=== PATIENT | male | born 1985 | race Asian ===

== ENCOUNTER 2017-11-19 14:29 | Outpatient (CLI) | payer OTHER, SELFPAY ==
--- NOTE | 2017-11-19 12:00 | SATEXT_ITS ---
Assessment: Yousif presents for nutritional counseling. The referral is for fatty liver and GERD. He is 64 and 154 lbs. His BMI is 25.5 consistent with mild overweight. Yousif describes feeling very tired and run down for his young age. He wants to go to the gym and work out after work but has no energy or motivation. He reports that he was found to be deficient in Vitamin D and Vitamin B12. He is a vegetarian and he does not eat fish or egg. He has 1 cup of oatmeal for breakfast, he has rice, lentils, and vegetables at lunch, the same at dinner plus some bread. He has plain yogurt and drinks water. He also has almonds during the day. Nutritional Diagnosis: None at this time. Intervention: Suggested to Yousif that it is possible he is not getting enough variety in his diet and possibly not getting enough protein and absorbable iron. Provided a vegetarian meal plan using the foods that eats. Encouraged Yousif to keep up with his Vitamin D and Vitamin B12 supplements at this time. With regard to his weight and fatty liver, we discussed that physical activity will be beneficial. Even if he doesn't reduce his weight but increases his muscle mass, he will improve his overall health. Provided tips for his GERD. Monitoring and Evaluation: Yousif will self monitor his progress and evaluate his nutrition care plan for adequacy. He may follow up with me as needed. Thank you for the referral.
== END 2017-11-19 14:49 ==
PROVIDERS: PCP Internal Medicine; Visit Provider Dietitian, Registered
DX: K76.0 Fatty (change of) liver, not elsewhere classified (principal); K21.9 Gastro-esophageal reflux disease without esophagitis; Z71.3 Dietary counseling and surveillance
CPT/HCPCS: 97802

== ENCOUNTER 2018-05-02 12:23 | Emergency (ER) | payer OTHER, SELFPAY ==
[2018-05-02] VITALS (11 sets, daily range): BP systolic 112–126; BP diastolic 74–83; PULSE 60–77; RESP 11–20; TEMP 36.9; O2SAT 96–100
[2018-05-02] MEDS: Normal Saline Flush 10 ML SYR IVP (12:30)
--- NOTE | 2018-05-02 12:41 | DI.RAD_ITS ---
SYMPTOMS/DIAGNOSIS: LEFT-SIDED CHEST PAIN CHEST X-RAY, AP AND LATERAL: Comparison is 10/30/16. The heart is normal in size. The lungs are clear. The mediastinal structures and pleura appear intact. IMPRESSION: Normal chest.
[2018-05-02] MEDS: Aspirin 81 MG CHEW 324 MG CH (12:53)
[2018-05-02 12:54] LABS: Abs Immature Grans 0.01 k/cumm (0.0-0.09); Absolute Basophil Count 0.04 k/cumm (0.0-0.2); Absolute Eosinophil Count 0.35 k/cumm (0.0-0.7); Absolute Lymphocyte Count 2.71 k/cumm (1.2-3.4); Absolute Monocyte Count 0.75 k/cumm (0.11-0.7); Absolute Neutrophil Count 3.58 k/cumm (1.2-6.7); Basophils % 0.5; Eosinophils % 4.7; HCT 43.9 % (40.0-50.0); HGB 15.4 g/dL (13.5-17.5); Immature Grans % 0.1; Lymphocytes % 36.4; Mean Corp. HGB Concentration 35.1 g/dL (32.0-36.0); Mean Corpuscular Hemoglobin 29.4 pg (27.0-33.0); Mean Corpuscular Volume 83.9 fL (80-95); Mean Platelet Volume 10.1 fL (8.0-11.0); Monocytes % 10.1; Neutrophils % 48.2; Platelet Count 183 x1000/uL (130-400); RBC 5.23 m/cumm (4.50-6.00); RBC Distribution Width 12.3 % (11.8-14.1); White Blood Cell Count 7.44 k/cumm (4.4-10.8)
[2018-05-02 13:12] LABS: ALT 74 U/L (12-78); AST 38 U/L (15-37); Albumin 4.5 g/dL (3.4-5.0); Alkaline Phosphatase 82 U/L (46-116); Anion Gap 7.7 mmol/L (3-11); BUN 10 mg/dL (7-18); Bilirubin, Total 0.6 mg/dL (0.2-1.0); CO2 30.3 mmol/L (21.0-32.0); CREATININE 0.78 mg/dL (0.70-1.30); Chloride 100 mmol/L (98-107); Glucose 99 mg/dL (70-100); Potassium 3.6 mmol/L (3.5-5.1); Sodium 138 mmol/L (136-145); Total Protein 8.4 g/dL (6.4-8.2)
[2018-05-02 13:18] LABS: Troponin I < 0.02 ng/mL (0.00-0.06)
--- NOTE | 2018-05-02 13:49 | ED.GENADUL_ITS ---
Discharge Plan Disposition Patient Disposition: AGAINST MEDICAL ADVICE Condition: Stable Discharge Details Chief Complaint: Chest Pain Clinical Impression: Acute thoracic myofascial strain, Atypical chest pain Primary Care Provider: Rosalba Andrews ED Provider: Todd Rosas Home Meds and New Rx's Prescriptions: New cyclobenzaprine 10 mg tablet 10 mg PO TID PRN (Reason: muscle spasm) Qty: 7 RF: 0 Discontinued Vibramycin 50 MG/5 ML syrup 100 mg PO DAILY RF: 0 No Action ergocalciferol (vitamin D2) [Vitamin D2] 50,000 unit Capsule 50,000 unit PO DIRECTED RF: 0 Discharge Instructions Instructions: Chest Pain (ED), Muscle Strain (ED) Additional Instructions: Feel free to take [id number] pain medication along with prescribed muscle relaxer to see if this helps your discomfort. Feel free to return the emergency department for reassessment as needed or for any further concerns otherwise follow-up with your primary care provider for reassessment if not improving. It is recommended that you perform good ergonomics while at your computer desk and limit heavy lifting or strenuous motions over the next week Referrals: Rosalba Andrews MD [Primary Care Provider] - (As needed for reassessment) Discharge Data Discharge Date/Time-TO BE ENTERED AT DEPARTURE: 05/02/18 14:03 Medical Decision Making Patient presenting to the emergency department with chief complaint of back pain radiating radiating around through the chest. Patient states that this started approximately 15 minutes prior to arrival and is sharp in nature. Patient states that he is worried about a heart attack . Patient denies doing any strenuous activity when this began. Physical exam shows normal cardiac and respiratory examination with upper thoracic tenderness of paraspinal tissue otherwise no vertebral discomfort. Plan to check labs, chest x-ray, and staff midwife/apprenticeship director initiated protocol for EKG. EKG reviewed with attending physician. Initial review of labs and chest x-ray shows no acute or worrisome findings and are overall nondiagnostic with negative initial troponin. Patient reassessed and states that pain is improving, he was given aspirin at arrival. Patient was clearly informed that given onset of symptoms that initial troponin does not necessarily rule out cardiac nature to chest pain. He states that now he realizes he had done a strenuous workout last night and that pain may have been more positional while sitting at his desk causing a muscular spasm. Due to patient stating some chest discomfort along with his symptoms I would prefer to do a 3-hour troponin given inverted T waves on EKG but no acute signs of stemi. Patient states that he does not want to stay for the 3-hour cardiac test and would prefer to go home and return for any worsening symptoms. Thorough return precautions were discussed. Given that patient then revealed workout induced back pain/thoracic pain I feel that this is highly likely the cause of his symptoms but ACS cannot fully be ruled out on one troponin. Patient again was informed of this but stated he would prefer to be discharged. Patient was willing to sign out AMA but I did prescribe him Flexeril to see if this helps with his muscular spasms and encouraged him to use [id number] pain therapies as needed. After discussion of diagnosis and plan of care patient has no further needs, questions, or concerns and states clear understanding to return to the emergency department for any worsening symptoms or further concerns. ECG Data Interpretation: Normal sinus rhythm with rate of 64, some inverted T waves in III, no STEMI, EKG compared to previous which shows no significant. HPI General Mode of arrival: ambulatory . Date/Time Provider Initiated Documentation: 05/02/18 12:38 . Limitations to Documentation: no limitations . Information obtained by: patient and RN notes reviewed . History of Present Illness 32 year old M presents to the emergency department with the chief complaint of Shoulder blade pain radiating to chest, described as moderate, with intensity rated at 8. Quality is described as sharp, Patient started experiencing this minute(s) (15) and it has been constant. No relieving factors improve symptom(s), Movement worsens symptoms . Patient notes no other symptoms.. Patient did receive the following treatments prior to arrival, none Related Data Home Medications Medication Instructions Recorded Confirmed cyclobenzaprine 10 mg PO TID PRN #7 tab 05/02/18 ergocalciferol (vitamin D2) 50,000 unit PO DIRECTED 05/02/18 05/02/18 [Vitamin D2] Previous Rx's Medication Instructions Recorded cyclobenzaprine 10 mg PO TID PRN #7 tab 05/02/18 Allergies Allergy/AdvReac Type Severity Reaction Status Date / Time No Known Drug Allergies Allergy Verified 05/02/18 12:44 some medications Allergy Severe couldn't Uncoded 05/02/18 12:44 breath General Stated Complaint: Chest Pain LARRY: 2 Review of Systems Constitutional Denies chills, Denies fever(s) and Denies malaise ENT Denies neck pain Cardiovascular Reports as per HPI, Reports chest pain, Reports chest pain with activity, Denies syncope, Denies irregular heart rhythm, Denies palpitations and Denies dyspnea Respiratory Denies cough, Denies hemoptysis and Denies dyspnea Gastrointestinal Denies abdominal pain, Denies nausea and Denies vomiting Musculoskeletal Reports back pain, Denies neck pain and Denies stiffness Neurologic Denies syncope Psychiatric Denies anxiety Endocrine Denies cold intolerance, Denies heat intolerance and Denies palpitations PFSH Surgical History EGD (08/03/14) Family History Mother Diabetes Anxiety Father Diabetes Sister Diabetes Essential hypertension Anxiety Social History Smoking/Tobacco Use Status: Never Alcohol Intake: never Substance use type: does not use Housing: apartment Do you feel safe in your relationship?: Yes Exam Const General: cooperative, healthy appearing, comfortable, no acute distress, not diaphoretic and not ill appearing Nutritional Appearance: average body habitus Orientation: alert, awake and oriented x3 Limitations: mental status not altered Neck Neck: normal visual inspection, full ROM, trachea midline, supple and no anterior neck swelling Thyroid: thyroid normal Carotids: normal carotid upstroke and no bruits Chest Chest: normal inspection of the chest Resp Effort & Inspection: normal respiratory effort and able to speak in complete sentences Auscultation: clear to auscultation bilaterally Cardio Jugular venous pressure: no JVD Palpation: normal PMI Rate: regular rate Rhythm: regular rhythm Heart Sounds: S1 normal, S2 normal, no click, no gallops, no murmurs and no rubs Bruits: no abdominal aortic bruits and no carotid bruits Pulses: radial pulses present bilaterally 2+ GI Inspection: normal to inspection Palpation: soft, no aortic enlargement, no pulsatile masses and nontender Auscultation: normal bowel sounds Back/Spine/Pelvis Thoracic/Lumbar Spine: thoraco-lumbar ROM normal and paraspinal tenderness (To mid section in between scapula and up to lower cervical) Skin General skin exam: no rashes or lesions noted Neuro General: alert, awake, oriented x3, tone normal and moves all extremities Course Vital Signs Temperature 36.9 C 05/02/18 12:27 Pulse 64 05/02/18 12:27 Respiratory Rate 20 05/02/18 12:27 Blood Pressure 126/79 05/02/18 12:27 Pulse Oximetry 100 05/02/18 12:27 Temperature 36.9 C 05/02/18 12:27 Temperature Source Skin 05/02/18 12:27 Pulse 61 05/02/18 12:46 Pulse 62 05/02/18 12:47 Respiratory Rate 14 05/02/18 12:49 Respiratory Effort 05/02/18 12:49 Respiratory Depth Shallow 05/02/18 12:49 Blood Pressure 112/74 05/02/18 12:46 Blood Pressure Mean 82 05/02/18 12:46 Blood Pressure Position Supine 05/02/18 12:27 Pulse Oximetry 98 05/02/18 12:47 Oxygen Delivery Method Room Air 05/02/18 12:27 Oxygen Flow Rate 0 05/02/18 12:27 Pain Level 8 05/02/18 12:27 Lab/Test Results Lab/Test Results: Laboratory Tests Range/Units 05/02/18 05/02/18 12:30 12:30 WBC (4.4-10.8) k/cumm 7.44 RBC (4.50-6.00) m/cumm 5.23 Hgb (13.5-17.5) g/dL 15.4 Hct (40.0-50.0) % 43.9 MCV (80-95) fL 83.9 MCH (27.0-33.0) pg 29.4 MCHC (32.0-36.0) g/dL 35.1 RDW (11.8-14.1) % 12.3 Plt Count (130-400) x1000/uL 183 MPV (8.0-11.0) fL 10.1 Immature Gran % 0.1 Neutrophils % 48.2 Lymphocytes % 36.4 Monocytes % 10.1 Eosinophils % 4.7 Basophils % 0.5 Absolute Neutrophils (1.2-6.7) k/cumm 3.58 Absolute Lymphocytes (1.2-3.4) k/cumm 2.71 Absolute Monocytes (0.11-0.7) k/cumm 0.75 H Absolute Eosinophils (0.0-0.7) k/cumm 0.35 Absolute Basophils (0.0-0.2) k/cumm 0.04 Sodium (136-145) mmol/L 138 Potassium (3.5-5.1) mmol/L 3.6 Chloride (98-107) mmol/L 100 Carbon Dioxide (21.0-32.0) mmol/L 30.3 Anion Gap (3-11) mmol/L 7.7 BUN (7-18) mg/dL 10 Creatinine (0.70-1.30) mg/dL 0.78 Estimated GFR/1.73 m2 (mL/min/1.73m2) >= 60.00 Glucose (70-100) mg/dL 99 Calcium (8.5-10.1) mg/dL 9.0 Magnesium (1.8-2.4) mg/dL 2.0 Total Bilirubin (0.2-1.0) mg/dL 0.6 AST (15-37) U/L 38 H ALT (12-78) U/L 74 Alkaline Phosphatase (46-116) U/L 82 Troponin I (0.00-0.06) ng/mL < 0.02 Total Protein (6.4-8.2) g/dL 8.4 H Albumin (3.4-5.0) g/dL 4.5
== END 2018-05-02 14:03 | disposition left against medical advice (07) ==
PROVIDERS: Emergency Provider Nurse Practitioner Family; PCP Internal Medicine
DX: S29.011A Strain of muscle and tendon of front wall of thorax, initial encounter (principal); R07.89 Other chest pain; X58.XXXA Exposure to other specified factors, initial encounter
CPT/HCPCS: 36415; 80053; 93005; 99285; 71046; 83735; 84484; 85025; 93010

== ENCOUNTER 2018-05-13 13:23 | Outpatient (CLI) | payer OTHER, SELFPAY ==
[2018-05-13 14:52] LABS: Vitamin D 25 Total 46.7 ng/ml (30-100)
== END 2018-05-13 13:43 ==
PROVIDERS: PCP Internal Medicine; Visit Provider Internal Medicine
DX: E55.9 Vitamin D deficiency, unspecified (principal)
CPT/HCPCS: 36415; 82306

== ENCOUNTER 2019-01-21 19:24 | Outpatient (REF) | payer OTHER, SELFPAY ==
[2019-01-21 18:45] LABS: ALT 132 U/L (16-63); AST 43 U/L (15-37); Albumin 4.5 g/dL (3.4-5.0); Alkaline Phosphatase 79 U/L (46-116); Bilirubin, Direct 0.11 mg/dL (0.00-0.20); Bilirubin, Total 0.4 mg/dL (0.2-1.0); Total Protein 7.7 g/dL (6.4-8.2)
[2019-01-25 00:02] LABS: 25-Hydroxy D Total 18 ng/mL; 25-Hydroxy D2 <4.0 ng/mL; 25-Hydroxy D3 18 ng/mL
== END 2019-01-21 19:44 ==
LOC: LBN 19:24
PROVIDERS: PCP Internal Medicine; Visit Provider Family Medicine
DX: E55.9 Vitamin D deficiency, unspecified (principal); K76.0 Fatty (change of) liver, not elsewhere classified
CPT/HCPCS: 80076; 82306

== ENCOUNTER 2019-02-07 12:30 | Outpatient (CLI) | payer OTHER, SELFPAY ==
[2019-02-11 14:59] LABS: Helicobacter pylori Ag, Feces Positive (Negative)
== END 2019-02-07 12:50 ==
PROVIDERS: PCP Internal Medicine; Visit Provider Family Medicine
DX: K52.9 Noninfective gastroenteritis and colitis, unspecified (principal)
CPT/HCPCS: 87338

== ENCOUNTER 2019-02-11 02:56 | Outpatient (CLI) | payer OTHER, SELFPAY ==
--- NOTE | 2019-02-11 08:29 | DI.US_ITS ---
EXAM: US ABDOMEN CLINICAL HISTORY: ELEVATED LFTS R79.89 TECHNIQUE: Ultrasound abdomen performed using standard protocol. COMPARISON: No exams were available for comparison FINDINGS: LIVER: Increased echogenicity consistent with hepatic steatosis. No hepatic mass is seen. There is hepatopetal flow through the portal vein. GALLBLADDER: No evidence of cholelithiasis. No evidence of wall thickening. No pericholecystic fluid identified. KIDNEYS: Kidneys are symmetric in size. No evidence of renal calculi. No evidence of hydronephrosis. No renal mass or cyst identified. BILIARY SYSTEM: Common bile duct measures 4 mm. No intrahepatic biliary ductal dilation. HOFFMANN'S SIGN: Negative. PANCREAS: Normal where visualized. SPLEEN: Not enlarged. ABDOMINAL AORTA AND IVC: Visualized portions normal caliber. ASCITES: None seen. IMPRESSION: Increased echogenicity of the liver consistent with hepatic steatosis.
== END 2019-02-11 03:16 ==
PROVIDERS: PCP Internal Medicine; Visit Provider Internal Medicine
DX: R79.89 Other specified abnormal findings of blood chemistry (principal); K76.0 Fatty (change of) liver, not elsewhere classified
CPT/HCPCS: 76700

== ENCOUNTER 2019-02-13 12:35 | Outpatient (REF) | payer OTHER, SELFPAY ==
[2019-02-13 18:39] LABS: ALT 137 U/L (16-63); AST 48 U/L (15-37); Albumin 4.6 g/dL (3.4-5.0); Alkaline Phosphatase 92 U/L (46-116); Anion Gap 9.4 mmol/L (3-11); BUN 9 mg/dL (7-18); Bilirubin, Total 0.4 mg/dL (0.2-1.0); CO2 29.6 mmol/L (21.0-32.0); CREATININE 0.59 mg/dL (0.70-1.30); Calcium 8.7 mg/dL (8.5-10.1); Chloride 103 mmol/L (98-107); Glucose 83 mg/dL (74-106); Sodium 142 mmol/L (136-145); Total Protein 7.9 g/dL (6.4-8.2)
== END 2019-02-13 12:55 ==
LOC: LBO 12:35
PROVIDERS: PCP Internal Medicine; Visit Provider Nurse Practitioner Adult Health
DX: R74.0 Nonspecific elevation of levels of transaminase and lactic acid dehydrogenase [LDH] (principal); A04.8 Other specified bacterial intestinal infections
CPT/HCPCS: 80053

== ENCOUNTER 2019-07-09 14:12 | Outpatient (CLI) | payer OTHER, SELFPAY ==
[2019-07-09 18:06] LABS: ALT 54 U/L (16-63); AST 25 U/L (15-37)
[2019-07-15 14:11] LABS: Helicobacter pylori Ag, Feces Negative (Negative)
== END 2019-07-09 14:32 ==
PROVIDERS: PCP Internal Medicine; Visit Provider Internal Medicine
DX: A04.8 Other specified bacterial intestinal infections (principal); K76.0 Fatty (change of) liver, not elsewhere classified
CPT/HCPCS: 36415; 87338; 84450; 84460

== ENCOUNTER 2020-02-05 01:52 | Outpatient (CLI) | payer OTHER, SELFPAY ==
[2020-02-05 18:27] LABS: Vitamin D 25 Total 36.1 ng/ml (30-100)
[2020-02-06 12:42] LABS: ALT 54 U/L (16-63); AST 24 U/L (15-37); Albumin 4.4 g/dL (3.4-5.0); Alkaline Phosphatase 99 U/L (46-116); Bilirubin, Direct 0.08 mg/dL (0.00-0.20); Bilirubin, Total 0.4 mg/dL (0.2-1.0); Total Protein 7.8 g/dL (6.4-8.2)
== END 2020-02-05 02:12 ==
PROVIDERS: Family Medicine; PCP Internal Medicine; Visit Provider Internal Medicine
DX: E55.9 Vitamin D deficiency, unspecified (principal); K76.0 Fatty (change of) liver, not elsewhere classified
CPT/HCPCS: 36415; 80076; 82306

== ENCOUNTER 2020-12-30 12:41 | Outpatient (CLI) | payer OTHER, SELFPAY ==
[2020-12-30 13:13] LABS: Albumin 4.9 g/dL (3.4-5.0); Alkaline Phosphatase 96 U/L (46-116); BUN 13 mg/dL (7-18); Bilirubin, Total 0.6 mg/dL (0.2-1.0); CREATININE 0.8 mg/dL (0.70-1.30); Calcium 9.2 mg/dL (8.5-10.1); Glucose 94 mg/dL (74-106); Sodium 142 mmol/L (136-145); Total Protein 8.6 g/dL (6.4-8.2)
[2020-12-30 13:14] LABS: ALT 115 U/L (16-63); AST 39 U/L (15-37); Anion Gap 9.9 mmol/L (3-11); CO2 30.1 mmol/L (21.0-32.0); Chloride 102 mmol/L (98-107); Potassium 4.3 mmol/L (3.5-5.1)
[2020-12-30 13:15] LABS: Calculated LDL 160 mg/dL (<100); Cholesterol 220 mg/dL (<200); HDL Cholesterol 39 mg/dL (40-60); Triglyceride 105 mg/dL (<150)
[2020-12-30 13:25] LABS: Vitamin D 25 Total 35.7 ng/mL (30-100)
== END 2020-12-30 12:42 | disposition home or self-care (01) ==
LOC: LOS 12:43
PROVIDERS: Nurse Practitioner Adult Health; PCP Internal Medicine; Visit Provider Internal Medicine
DX: Z13.220 Encounter for screening for lipoid disorders; E78.00 Pure hypercholesterolemia, unspecified; E55.9 Vitamin D deficiency, unspecified; K76.0 Fatty (change of) liver, not elsewhere classified
CPT/HCPCS: 36415; 80053; 80061; 82306

== ENCOUNTER 2021-01-10 19:22 | Emergency (ER) | payer OTHER, SELFPAY ==
[2021-01-10 19:50] VITALS: BP 156/76; PULSE 69; RESP 18; TEMP 36.6; O2SAT 100
[2021-01-10 20:08] LABS: Bilirubin Negative (Negative); Blood Moderate (Negative); Clarity Sl Cloudy (Clear); Glucose Negative (Negative); Ketones Negative (Negative); Leukocyte Esterase Negative (Negative); Nitrite Negative (Negative); Urobilinogen 0.2 EU/dL (Up TO 0.2)
--- NOTE | 2021-01-10 20:15 | DI.CT_ITS ---
Exam(s) CT RENAL COLIC WO EXAM: CT RENAL COLIC WO INDICATION: left flank pain, hematuria. COMPARISON: No exams were available for comparison TECHNIQUE: CT examination was performed without contrast administration. FINDINGS: Images obtained through the lung bases are unremarkable. There is decreased hepatic attenuation con sistent with hepatic steatosis. Spleen is unremarkable in appearance. Visualized portions of the pancreas are unremarkable. Gallbladder and bile ducts are CT normal. Abdominal aorta is of normal diameter. No significant abdominal wall hernia. No significant abdominal or pelvic adenopathy. Adrenals appear normal bilaterally. The left kidney is unremarkable appearance with no hydronephrosis, nephrolithiasis, renal mass. No l eft ureteral stone. On the right there is moderate hydronephrosis and a small perinephric fluid collection. There is a n onobstructing right renal calculus. There is right hydroureter to the level of the ureterovesical ju nction where there is a 3 millimeter in diameter intramural obstructing stone. Urinary bladder other boateng unremarkable. IMPRESSION: There is an obstructing 3 millimeter stone at the ureterovesical junction on the right in the intramu ral portion of the distal ureter. Nonobstructing right nephrolithiasis noted with a single 4 millimeter stone. RADIATION DOSE DELIVERED: 764.99mGy.cm DLP 764.99mGy.cm Total DLP CTDIvol RADIATION OPTIMIZATION: All CT scans at this facility use at least one of these dose optimization te chniques: automated exposure control; mA and/or kV adjustment per patient size (includes targeted exa ms where dose is matched to clinical indication); or iterative reconstruction.
[2021-01-10 20:16] LABS: Bacteria Negative HPF (Negative); C & S Indicated? No; Casts Negative LPF (Negative); Crystals Negative HPF (Negative); Epithelial Cells Few HPF (Negative); Mucus Negative (Negative); RBC 20-50 HPF (0-2); WBC 0-2 HPF (0-5)
[2021-01-10] MEDS: Ketorolac 15 MG/ML VIAL IVP (20:34)
[2021-01-10 20:48] LABS: Abs Immature Grans 0.04 10^3/uL (0.0-0.06); Absolute Basophil Count 0.04 10^3/uL (0.0-0.2); Absolute Lymphocyte Count 2.16 10^3/uL (1.2-3.4); Absolute Monocyte Count 1.04 10^3/uL (0.1-0.8); Absolute Neutrophil Count 7.23 10^3/uL (1.2-6.7); Basophils % 0.4; Eosinophils % 0.9; HCT 40.8 % (40.0-50.0); HGB 13.9 g/dL (13.5-17.5); Immature Grans % 0.4; Lymphocytes % 20.4; MCH 28.9 pg (27.0-33.0); MCHC 34.1 % (32.0-36.0); MCV 84.8 fL (80-95); MPV 10.1 fL (8.0-11.0); Monocytes % 9.8; Neutrophils % 68.1; Nucleated RBC 0 %; Platelet Count 206 10^3/uL (130-400); RBC 4.81 10^6/uL (4.36-5.78); RDW 11.7 % (11.8-14.1); RDW-SD 35.7 fL; WBC 10.61 10^3/uL (4.4-10.8)
[2021-01-10 20:58] LABS: ALT 79 U/L (16-63); AST 30 U/L (15-37); Albumin 4.2 g/dL (3.4-5.0); Alkaline Phosphatase 120 U/L (46-116); Anion Gap 8.3 mmol/L (3-11); BUN 7 mg/dL (7-18); Bilirubin, Total 0.3 mg/dL (0.2-1.0); CO2 27.7 mmol/L (21.0-32.0); CREATININE 0.9 mg/dL (0.70-1.30); Calcium 8.5 mg/dL (8.5-10.1); Chloride 97 mmol/L (98-107); Glucose 112 mg/dL (74-106); Potassium 3.7 mmol/L (3.5-5.1); Sodium 133 mmol/L (136-145); Total Protein 7.9 g/dL (6.4-8.2)
[2021-01-10 21:24] VITALS: BP 138/67; PULSE 76; RESP 18; O2SAT 99
--- NOTE | 2021-01-10 21:44 | ED.GENADUL_ITS ---
Discharge Plan Disposition Patient Disposition: HOME Condition: Stable Discharge Details Clinical Impression: Ureterolithiasis, Cystitis Primary Care Provider: Rosalba Andrews ED Provider: Imer Woods Home Meds and New Rx's Prescriptions: New sulfamethoxazole-trimethoprim [Bactrim DS] 800-160 mg tablet 1 tab PO BID Qty: 14 RF: 0 Continued ketoconazole 2 % shampoo 1 applic TP DAILY PRN RF: 0 cholecalciferol (vitamin D3) 50 mcg (2,000 unit) tablet 50 mcg PO DAILY RF: 0 triamcinolone acetonide 0.1 % cream 1 applic TP BID PRNRF: 0 Discharge Instructions Instructions: Kidney Stones (ED), How to Strain Your Urine (ED) Additional Instructions: Please take ibuprofen over the counter. Take 600mg by mouth every 6 hours as needed for pain. Take Flomax as prescribed until you passed stone. Take antibiotic as prescribed. Complete the full course. Please strain your urine to collect stone. Save stone for analysis and bring with you to follow-up appointment with urology. Please follow-up with urology. Call to schedule an appointment. Please contact your primary care physician to arrange follow-up. Return to the ER for any worsening or new concerning symptoms. Referrals: Jake Rushing MD [ [facility] STAFF PHYSICIAN] - Rosalba Andrews MD [Primary Care Provider] - Discharge Data Discharge Date/Time-TO BE ENTERED AT DEPARTURE: 01/10/21 22:37 Medical Decision Making 35-year-old male with history of renal stones in the remote past, here with right flank pain worse over the past 2 days as well as dysuria. Urinalysis reviewed and reveals greater than 50 RBCs and [address] of the abdomen pelvis was interpreted by radiology: IMPRESSION: 1. Moderate right obstructive uropathy caused by a 5 mm x 3 mm stone impacted in the right UVJ. 2. Urinary bladder wall findings may be related to cystitis in the appropriate clinical setting. Pain significantly improved with toradol. Will treat with flomax. Given dysuria and findings of cystitis, I will treat for urinary tract infection. I will have patient follow-up with urology. HPI General Mode of arrival: ambulatory . Date/Time Provider Initiated Documentation: 01/10/21 19:55 . Limitations to Documentation: no limitations . Information obtained by: patient . HPI Narrative: 35yo m with history of remote renal stones (9yo), here with chief complaint of right flank pain. Pain started two days ago and worse today. Associated tingling discomfort in penis. Patient notes he was traveling last week and was not much water as usual. He denies associated hematuria but has had dark urine. No rash or penile discharge. No associated fever or nausea vomiting. Related Data Home Medications Medication Instructions Recorded Confirmed ketoconazole 2 % shampoo 1 applic TP DAILY PRN ml 01/29/19 01/18/21 cholecalciferol (vitamin D3) 50 50 mcg PO DAILY tab 07/11/19 01/18/21 mcg (2,000 unit) tablet triamcinolone acetonide 0.1 % 1 applic TP BID PRN 10/13/19 01/18/21 topical cream sulfamethoxazole-trimethoprim 1 tab PO BID #14 tab 01/10/21 01/18/21 [Bactrim DS] Previous Rx's Medication Instructions Recorded sulfamethoxazole-trimethoprim 1 tab PO BID #14 tab 01/10/21 [Bactrim DS] Allergies Allergy/AdvReac Type Severity Reaction Status Date / Time No Known Drug Allergies Allergy Verified 01/17/21 14:33 some medications Allergy Severe couldn't Uncoded 01/17/21 14:33 breath General Stated Complaint: Urinary LARRY: 4 Review of Systems All systems reviewed & are unremarkable except as noted in HPI and below Constitutional Constitutional: Denies fever(s) Genitourinary Genitourinary: Reports as per HPI, Denies hematuria, Denies erectile dys function, Denies scrotal swelling, Denies testicular mass and Denies testicular pain PFSH Active Problem List Hypercholesterolemia (Chronic ~01/02/21) Stress due to illness of family member (Acute) Vitamin D deficiency (Chronic) Somatic complaints, multiple (Chronic) Worried well (Chronic) Anxiety (Chronic 04/04/16) Lichen simplex chronicus (Chronic) GERD (gastroesophageal reflux disease) (Chronic 03/16/16) Functional bowel disorder (Chronic 03/20/17) Fatty liver (Chronic 02/19/11) Medical History Helicobacter pylori antibody positive (07/25/14) Keratosis pilaris (02/05/17) [facility] [place] 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 H.pylori positive- Dr. Perry Family History Mother Diabetes Anxiety Father Diabetes Sister Diabetes Essential hypertension Anxiety Social History Smoking/Tobacco Use Status: Never Smoking risk assessment performed?: Yes Alcohol Intake: never Drug use: Never Substance use type: does not use Housing: apartment Number of Children: 0 Communication Needs: None current occupation: [employer] What is your relationship status?: don't know How often do you talk on the phone with friends or family?: three or more times per week Panel score (0-1 are the most socially isolated patients): 1 What type of physical activity do you participate in: regular exercise Frequency: 3-4 times per week Seatbelt use: always Working smoke detector in home: Yes Carbon monox detector in home: Yes Do you feel safe at home: Yes Exam Const General: cooperative and no acute distress HENMT Mouth: moist mucous membranes Eyes Conjunctivae: normal conjunctivae Sclera: normal sclerae Resp Auscultation: clear to auscultation bilaterally, no rales, no rhonchi and no wheezes Cardio Rate: regular rate and not tachycardic Rhythm: regular rhythm GI Palpation: soft, not firm, no guarding, no masses, not rigid and nontender General: CVA tenderness on the right Male General Exam: Yes normal external exam Penis: normal penis Meatus: meatus normal Scrotum: scrotum normal, no inguinal hernias and no scrotal swelling Testes: normal, epididymides normal, no testicular swelling and no testicular tenderness Skin General skin exam: no rashes or lesions noted Neuro General: patient alert, patient awake and tone normal Extrem General: no edema Psych Appearance: grossly normal Mental Status: mental status grossly normal Speech and Movement: speech and movement normal Course Vital Signs Vital signs: Vital Signs Temperature 36.6 C 01/10/21 19:50 Pulse 69 01/10/21 19:50 Respiratory Rate 18 01/10/21 19:50 Blood Pressure 156/76 H 01/10/21 19:50 Pulse Oximetry 100 01/10/21 19:50 Temperature 36.6 C 01/10/21 19:50 Temperature Source Tympanic 01/10/21 19:50 Pulse 76 01/10/21 21:24 Respiratory Rate 18 01/10/21 21:24 Respiratory Effort 01/10/21 19:58 Blood Pressure 138/67 01/10/21 21:24 Blood Pressure Position Supine 01/10/21 19:50 Pulse Oximetry 99 01/10/21 21:24 Oxygen Delivery Method Room Air 01/10/21 21:24 Oxygen Flow Rate 0 01/10/21 21:24 Pain Level 8 01/10/21 19:50 Lab/Test Results Lab/Test Results: Laboratory Tests Range/Units 01/10/21 01/10/21 01/10/21 20:00 20:30 20:30 WBC (4.4-10.8) 10^3/uL 10.61 RBC (4.36-5.78) 10^6/uL 4.81 Hgb (13.5-17.5) g/dL 13.9 Hct (40.0-50.0) % 40.8 MCV (80-95) fL 84.8 MCH (27.0-33.0) pg 28.9 MCHC (32.0-36.0) % 34.1 RDW (11.8-14.1) % 11.7 L Plt Count (130-400) 10^3/uL 206 MPV (8.0-11.0) fL 10.1 Immature Gran % 0.4 Neutrophils % 68.1 Lymphocytes % 20.4 Monocytes % 9.8 Eosinophils % 0.9 Basophils % 0.4 Nucleated RBC % % 0 Absolute Neutrophils (1.2-6.7) 10^3/uL 7.23 H Absolute Lymphocytes (1.2-3.4) 10^3/uL 2.16 Absolute Monocytes (0.1-0.8) 10^3/uL 1.04 H Absolute Eosinophils (0.0-0.7) 10^3/uL 0.10 Absolute Basophils (0.0-0.2) 10^3/uL 0.04 Sodium (136-145) mmol/L 133 L Potassium (3.5-5.1) mmol/L 3.7 Chloride (98-107) mmol/L 97 L Carbon Dioxide (21.0-32.0) mmol/L 27.7 Anion Gap (3-11) mmol/L 8.3 BUN (7-18) mg/dL 7 Creatinine (0.70-1.30) mg/dL 0.9 Estimated GFR/1.73 m2 (mL/min/1.73m2) >= 60.00 Glucose (74-106) mg/dL 112 H Calcium (8.5-10.1) mg/dL 8.5 Total Bilirubin (0.2-1.0) mg/dL 0.3 AST (15-37) U/L 30 ALT (16-63) U/L 79 H Alkaline Phosphatase (46-116) U/L 120 H Total Protein (6.4-8.2) g/dL 7.9 Albumin (3.4-5.0) g/dL 4.2 Urine Color (Yellow) Yellow Urine Clarity (Clear) Sl Cloudy Urine pH (5-8) 6.0 Ur Specific [place] (1.005-1.025) 1.020 Urine Protein (Negative) mg/dL Negative Urine Ketones (Negative) mg/dL Negative Urine Blood (Negative) Moderate H Urine Nitrite (Negative) Negative Urine Bilirubin (Negative) Negative Urine Urobilinogen (Up TO 0.2) EU/dL 0.2 Ur Leukocyte Esterase (Negative) Negative Urine RBC (0-2) HPF 20-50 H Urine WBC (0-5) HPF 0-2 Ur Epithelial Cells (Negative) HPF Few Urine Crystals (Negative) HPF Negative Urine Bacteria (Negative) HPF Negative Urine Casts (Negative) LPF Negative Urine Mucus (Negative) Negative Ur Culture Indicated? No Urine Glucose (Negative) mg/dL Negative
--- NOTE | 2021-01-10 21:55 | DI.VRAD_ITS ---
PROCEDURE INFORMATION: Exam: CT Abdomen And Pelvis Without Contrast Exam date and time: 01/10/2021 8:22 PM Age: 35 years old Clinical indication: Patient HX: Painful urination, L flank pain TECHNIQUE: Imaging protocol: Computed tomography of the abdomen and pelvis without contrast. COMPARISON: US ABDOMEN 02/11/2019 8:29 AM FINDINGS: Lungs: Subcentimeter nodular opacifications in the left lung base are pleural based and related to nodular atelectasis. These are of no concern. Lung bases are otherwise clear. Diaphragm: A small hiatal hernia is present. Liver: There is a diffuse decrease in hepatic parenchymal density, consistent with fatty infiltration. The liver is otherwise unremarkable. Geographic areas of focal fatty sparing are appreciated, at the level of the falciform ligament and in the gallbladder fossa. The liver is otherwise unremarkable. Gallbladder and bile ducts: Unremarkable. Pancreas: Normal. No ductal dilation. Spleen: Normal. No splenomegaly. Adrenal glands: Normal. No mass. Kidneys and ureters: There is inflammatory right perinephric stranding. 2 mm nonobstructive right renal stone. There is moderate right hydronephrosis. There is moderate right hydroureter. 5 mm x 3 mm stone impacted in the right UVJ. The left ureter is normal. The left kidney is normal. Stomach and bowel: No bowel obstruction or significant bowel wall thickening. There is excessive colonic stool content. Appendix: A normal appendix is identified. Intraperitoneal space: Right perinephric free fluid is appreciated. Retroperitoneal space: No acute abnormalities in the retroperitoneal space. Vasculature: Unremarkable. No abdominal aortic aneurysm. Lymph nodes: No retroperitoneal, pelvic, or mesenteric adenopathy. Urinary bladder: Mild urinary bladder wall thickening. Reproductive: Unremarkable as visualized. Bones/joints: Unremarkable. No acute fracture. Soft tissues: No acute body wall soft tissue findings. IMPRESSION: 1. Moderate right obstructive uropathy caused by a 5 mm x 3 mm stone impacted in the right UVJ. 2. Urinary bladder wall findings may be related to cystitis in the appropriate clinical setting. Dictated and Authenticated by: Tirso Montoya MD. Ordering:ACOSTA Willams MD
[2021-01-10] MEDS: Sulfameth/Trimeth DS TAB 1 TAB PO (22:24)
[2021-01-10] MEDS: Tamsulosin 0.4 MG CAPCR PO (22:24)
[2021-01-12 15:24] LABS: Chlamydia Result Negative (Negative); GC Result Negative (Negative)
== END 2021-01-10 22:37 | disposition home or self-care (01) ==
PROVIDERS: Emergency Provider Student in an Organized Health Care Education/Training Program; PCP Internal Medicine
DX: N20.1 Calculus of ureter (principal); N30.00 Acute cystitis without hematuria; R31.9 Hematuria, unspecified
CPT/HCPCS: 80053; 87491; 87591; 96374; 99284; 74176; 81003; 81015; 85025; J1885

== ENCOUNTER 2021-01-19 01:25 | Outpatient (CLI) | payer OTHER, SELFPAY ==
--- NOTE | 2021-01-19 13:00 | NS.NUTBLAN_ITS ---
Marco was referred to Medical Nutrition Therapy for weight management, fatty liver disease. Family hx of DM2, obesity. 5'5 162 lbs, BMI 27. [place] Body Weight: 150 lbs. Reports depression over last 6 months. Stopped going to gym. Has gained about 10 lbs. Labs: elevated AST, ALT, ALkPhos indicative of fatty liver disease. Chol: 220, LDL: 160, HDL: 39 indicative of hyperlipidemia. Fasting blood sugars wnl, but increased over last year. Follows vegan diet plan. Mostly does his own cooking. Typical meal plan: rice, beans, vegetables, fruits, juice, yogurt. avoids alcohol. Exercise: none Session today focused on the prevalence of Non alcoholic fatty liver disease in [facility] and connection with insulin resistance, metabolic disease. Current diet high in carbohydrates, low in protein and fats. Provided education on how to increase protein and healthy fats in vegan diet and meal plans to lower carbohydrate load at meals. Encouraged using rob: [employer] to log meals/macronutrients. Recommend following [id number] kcal, 80-100g carbohydrate, 60-70 g protein, 45-55 g fat diet plan with 30 min cardio 5 x weekly. Goal weight loss: 5 lbs per month with goal weight of 145- 150 lbs. Will need to alter current meal plan by decreasing fruit, juice, milk, rice intake and increase vegan protein sources such as pea protein, sietan, tempeh, tofu, beans, lentils and increase non starchy vegetable intake. Follow up planned 02/05/21 at noon.
== END 2021-01-19 01:26 | disposition home or self-care (01) ==
LOC: DS 01:25
PROVIDERS: PCP Internal Medicine; Visit Provider Dietitian, Registered
DX: Z71.3 Dietary counseling and surveillance (principal); E66.9 Obesity, unspecified; K76.0 Fatty (change of) liver, not elsewhere classified; Z83.3 Family history of diabetes mellitus; Z84.89 Family history of other specified conditions
CPT/HCPCS: 97802

== ENCOUNTER 2021-03-21 01:53 | Outpatient (CLI) | payer OTHER, SELFPAY ==
[2021-03-24 09:14] LABS: Vitamin D 25 Total 33.9 ng/mL (30-100)
== END 2021-03-21 01:54 | disposition home or self-care (01) ==
LOC: LBO 01:53
PROVIDERS: PCP Internal Medicine; Visit Provider Urology
DX: N20.1 Calculus of ureter (principal); E55.9 Vitamin D deficiency, unspecified
CPT/HCPCS: 36415; 82306; 86900; 86901

== ENCOUNTER 2021-03-24 19:00 | Outpatient (REF) | payer OTHER, SELFPAY ==
[2021-03-24 15:20] LABS: Creatinine,Urine 15.42 mg/dL; Sodium, Urine 13 mmol/L
[2021-03-24 15:21] LABS: CLEAVED CELLS 38 mmol/24h (40-220); Creatinine,24hr Ur 0.45 g/24hr (0.95-2.49); Total Volume 2900 ml
[2021-03-25 09:25] LABS: Calcium Urine 3.3 mg/dL (See Note); Calcium Urine 24 hr 96 mg/24hrs (100-300); Timed Urine Volume 2900 mL
[2021-03-25 09:26] LABS: Timed Urine Volume 2900 mL; Uric Acid Urine 6.6 mg/dL (See Note); Uric Acid Urine 24hr 191 mg/24hrs (250-750)
[2021-03-25 09:51] LABS: Magnesium Random Urine <2.0 mg/dL (See Note); Timed Urine Volume 2900 mL
[2021-03-27 14:18] LABS: Oxalate, U 0.15 mmol/24 h (0.11-0.46); Oxalate, U 13.2 mg/24 h (9.7 - 40.5); Urine Volume 2900 mL
[2021-03-30 03:26] LABS: Citric Acid, 24hr Urine 168 mg/24 h (100-1300); Citric Acid/Creat Ratio 282 mg/g creat (60-660); Total Volume 2900 mL
== END 2021-03-24 19:01 | disposition home or self-care (01) ==
LOC: LBN 19:00
PROVIDERS: PCP Internal Medicine; Visit Provider Urology
DX: N20.1 Calculus of ureter (principal); E55.9 Vitamin D deficiency, unspecified
CPT/HCPCS: 82507; 83735; 81050; 82340; 82570; 83945; 84300; 84560